=== PATIENT | female | born 1950 | race Caucasian/White ===

== ENCOUNTER 2017-12-28 14:30 | Emergency (ER) | payer OTHER ==
[2017-12-28] MEDS ORDERED: ONDANSETRON 4 MG/2 ML VIAL ONE (14:51)
[2017-12-28] MEDS ORDERED: NS 1,000 ML IV ONE (14:54)
--- NOTE | 2017-12-28 14:56 | EDPHY ---
H & P Stated Complaint: Abd Pain, NVD Time Seen by Provider: 12/28/17 14:46 HPI/ROS: CHIEF COMPLAINT: Left lower quadrant pain and diarrhea HISTORY OF PRESENT ILLNESS: Patient is a 67-year-old female with a history of appendectomy and irritable bowel disease who comes to the emergency department complaining of left lower quadrant pain as well as watery diarrhea for the last 5 days. No blood. No fever. She returned from 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 No vomiting. Slight nausea. She also had a colonoscopy 1 year ago the revealed several small diverticuli. A single polyp that was benign. She denies urinary or vaginal symptoms. REVIEW OF SYSTEMS: Constitutional: denies: chills, fever, recent illness, recent injury EENTM: denies: blurred vision, double vision, nose congestion Respiratory: denies: cough, shortness of breath Cardiac: denies: chest pain, irregular heart rate, lightheadedness, palpitations Gastrointestinal/Abdominal: See HPI Genitourinary: denies: dysuria, frequency, hematuria, pain Musculoskeletal: denies: joint pain, muscle pain Skin: denies: lesions, rash, jaundice, bruising Neurological: denies: headache, numbness, paresthesia, tingling, dizziness, weakness Hematologic/Lymphatic: denies: blood clots, easy bleeding, easy bruising Immunologic/allergic: denies: HIV/AIDS, transplant EXAM: GENERAL: Well-appearing, well-nourished and in no acute distress. HEAD: Atraumatic, normocephalic. EYES: Pupils equal round and reactive to light, extraocular movements intact, sclera anicteric, conjunctiva are normal. ENT: TMs normal, nares patent, oropharynx clear without exudates. Moist mucous membranes. NECK: Normal range of motion, supple without lymphadenopathy or JVD. LUNGS: Breath sounds clear to auscultation bilaterally and equal. No wheezes rales or rhonchi. HEART: Regular rate and rhythm without murmurs, rubs or gallops. ABDOMEN: Soft, nontender, normoactive bowel sounds. No guarding, no rebound. No masses appreciated. BACK: No CVA tenderness, no spinal tenderness, step-offs or deformities EXTREMITIES: Normal range of motion, no pitting or edema. No clubbing or cyanosis. NEUROLOGICAL: Cranial nerves II through XII grossly intact. Normal speech, normal gait. 5/5 strength, normal movement in all extremities, normal sensation PSYCH: Normal mood, normal affect. SKIN: Warm, dry, normal turgor, no visible rashes or lesions. Source: Patient Exam Limitations: No limitations - Personal History Current Tetanus Diphtheria and Acellular Pertussis (TDAP): Yes - Medical/Surgical History Hx Asthma: No Hx Chronic Respiratory Disease: No Hx Diabetes: No Hx Cardiac Disease: No Hx Renal Disease: No Hx Cirrhosis: No Hx Alcoholism: No Hx HIV/AIDS: No Hx Splenectomy or Spleen Trauma: No Other PMH: Hysterectomy, Elbow Fx, HTN, High Cholesterol - Family History Significant Family History: No pertinent family hx - Social History Smoking Status: Never smoked Alcohol Use: Sober Drug Use: None Constitutional: Initial Vital Signs Temperature (C) 36.8 C 12/28/17 14:33 Heart Rate 68 12/28/17 14:33 Respiratory Rate 18 12/28/17 14:33 Blood Pressure 146/95 H 12/28/17 14:33 O2 Sat (%) 98 12/28/17 14:33 O2 Delivery Mode Room Air Allergies/Adverse Reactions: propoxyphene [From Darvon] Allergy (Verified 12/28/17 14:32) Home Medications: Medication Instructions Recorded Ciprofloxacin [Cipro] 500 mg PO BID #6 tab 12/28/17 Crestor 12/28/17 Lisinopril 12/28/17 Ondansetron Odt [Zofran Odt 4 mg 4 mg PO Q4 PRN #20 tab 12/28/17 (RX)] Medical Decision Making - Diagnostics Imaging Results: Imaging Impressions Abdomen CT 12/28/17 14:55 Impression: 1. Mild diverticulosis of the descending and sigmoid colon. No acute diverticulitis, free fluid, or abscess. 2. Nonrotation of bowel is an anatomic variation. The cecum resides in the left upper quadrant. 3. No obstruction or adynamic ileus. Findings discussed with Emergency Department physician, Van Dahl M.D., on December 28, 2017 at 1642. Imaging: Discussed imaging studies w/ shearing shed worker Radiologist ED Course/Re-evaluation: 4:50 p.m. We discussed the test results. The patient is very much relieved. She is eager to go home. We discussed options for treatment. At this time she would declined antibiotics which I believe is reasonable. I will write her prescription for Cipro in case she changes her mind or she develops a fever is cetera. She has not been able to give us a stool culture. She will take a bug at home. We discussed indications for returning. She does have a history of appendectomy. Differential Diagnosis: Partial list of the Differential diagnosis considered include but were not limited to; diarrhea, travel diarrhea, diverticulitis and although unlikely based on the history and physical exam, I also considered ovarian cyst, urinary tract infection, kidney stone. I discussed these differential diagnoses and the plan with the patient as well as the usual and expected course. The patient understands that the diagnosis is provisional and that in medicine we are not always correct and that further workup is often warranted. Usual and customary warnings were given. All of the patient's questions were answered. The patient was instructed to return to the emergency department should the symptoms at all worsen or return, otherwise to followup with the physician as we discussed. - Data Points Laboratory Results: Laboratory Results 12/28/17 15:00 12/28/17 15:00 12/28/17 12/28/17 12/28/17 15:58 15:00 15:00 WBC 2.71 10^3/uL L 10^3/uL (3.80-9.50) RBC 4.95 10^6/uL 10^6/uL (4.18-5.33) Hgb 14.7 g/dL g/dL (12.6-16.3) Hct 43.0 % % (38.0-47.0) MCV 86.9 fL fL (81.5-99.8) MCH 29.7 pg pg (27.9-34.1) MCHC 34.2 g/dL g/dL (32.4-36.7) RDW 11.8 % % (11.5-15.2) Plt Count 179 10^3/uL 10^3/uL (150-400) MPV 9.9 fL fL (8.7-11.7) Neut % (Auto) 50.1 % % (39.3-74.2) Lymph % (Auto) 31.0 % % (15.0-45.0) [place] % (Auto) 17.0 % H % (4.5-13.0) Eos % (Auto) 1.5 % % (0.6-7.6) Baso % (Auto) 0.4 % % (0.3-1.7) Nucleat RBC Rel Count 0.0 % % (0.0-0.2) Absolute Neuts (auto) 1.36 10^3/uL L 10^3/uL (1.70-6.50) Absolute Lymphs (auto) 0.84 10^3/uL L 10^3/uL (1.00-3.00) Absolute Monos (auto) 0.46 10^3/uL 10^3/uL (0.30-0.80) Absolute Eos (auto) 0.04 10^3/uL 10^3/uL (0.03-0.40) Absolute Basos (auto) 0.01 10^3/uL L 10^3/uL (0.02-0.10) Absolute Nucleated RBC 0.00 10^3/uL 10^3/uL (0-0.01) Immature Gran % 0.0 % % (0.0-1.1) Immature Gran # 0.00 10^3/uL 10^3/uL (0.00-0.10) Atypical Lymphocytes 1+ H Platelet Estimate TNP Sodium 133 mEq/L L mEq/L (135-145) Potassium 3.6 mEq/L mEq/L (3.5-5.2) Chloride 94 mEq/L L mEq/L (97-110) Carbon Dioxide 24 mEq/l mEq/l (22-31) Anion Gap 15 mEq/L mEq/L (8-16) BUN 9 mg/dL mg/dL (7-23) Creatinine 0.8 mg/dL mg/dL (0.6-1.0) Estimated GFR > 60 Glucose 85 mg/dL mg/dL (70-100) Calcium 8.9 mg/dL mg/dL (8.5-10.4) Total Bilirubin 0.6 mg/dL mg/dL (0.1-1.4) Conjugated Bilirubin 0.5 mg/dL mg/dL (0.0-0.5) Unconjugated Bilirubin 0.1 mg/dL mg/dL (0.0-1.1) AST 44 IU/L IU/L (14-46) ALT 42 IU/L IU/L (9-52) Alkaline Phosphatase 67 IU/L IU/L (38-126) Total Protein 7.1 g/dL g/dL (6.3-8.2) Albumin 4.3 g/dL g/dL (3.5-5.0) Lipase 238 IU/L IU/L (23-300) Urine Color PALE YELLOW Urine Appearance CLEAR Urine pH 6.0 (5.0-7.5) Ur Specific [place] 1.004 (1.002-1.030) Urine Protein NEGATIVE (NEGATIVE) Urine Ketones TRACE H (NEGATIVE) Urine Blood 1+ H (NEGATIVE) Urine Nitrate NEGATIVE (NEGATIVE) Urine Bilirubin NEGATIVE (NEGATIVE) Urine Urobilinogen NEGATIVE EU EU (0.2-1.0) Ur Leukocyte Esterase NEGATIVE (NEGATIVE) Urine RBC 1-3 /hpf /hpf (0-3) Urine WBC NONE SEEN /hpf /hpf (0-3) Ur Epithelial Cells NONE SEEN /lpf /lpf (NONE-1+) Urine Mucus TRACE /lpf /lpf (NONE-1+) Urine Glucose NEGATIVE (NEGATIVE) Medications Given: Discontinued Medications Sodium Chloride (Ns) 1,000 mls @ 0 mls/hr IV EDNOW ONE; Wide Open PRN Reason: Protocol Stop: 12/28/17 14:55 Last Admin: 12/28/17 15:00 Dose: 1,000 mls Ondansetron HCl (Zofran Odt 4 Mg Prepack#2) 1 btl TAKEHOME EDNOW ONE Stop: 12/28/17 16:54 Last Admin: 12/28/17 17:00 Dose: 1 btl Departure - Departure Disposition: Home, Routine, Self-Care Clinical Impression: Acute diarrhea Condition: Good Instructions: Ondansetron (By mouth), Acute Diarrhea (ED) Referrals: Corie Gordon MD [Primary Care Provider] - As per Instructions Prescriptions: Ciprofloxacin [Cipro] 500 mg PO BID #6 tab Ondansetron Odt [Zofran Odt 4 mg (RX)] 4 mg PO Q4 PRN #20 tab PRN Reason: Nausea & Vomiting
[2017-12-28 15:27] LABS: PLATELET COUNT 179 10^3/uL (150-400)
[2017-12-28] MEDS ORDERED: IOPAMIDOL (ISOVUE-300) 100 ML BTL ONE (15:58)
[2017-12-28] MEDS ORDERED: ONDANSETRON 4MG PREPACK#2 BTL TAKEHOME ONE (16:53)
[2017-12-28 17:03] VITALS: BP 145/80
== END 2017-12-28 17:24 | disposition home or self-care (01) ==
DX: R19.7 Diarrhea, unspecified (principal); E86.9 Volume depletion, unspecified; I10 Essential (primary) hypertension; Z90.710 Acquired absence of both cervix and uterus; Z90.89 Acquired absence of other organs
CPT/HCPCS: 74177; 99285; J2405; Q9967